=== PATIENT | male | born 1980 | race Caucasian/White ===

== ENCOUNTER 2019-10-06 01:46 | Emergency (ER) | payer SELFPAY ==
--- NOTE | 2019-10-06 01:52 | ED_ITS ---
HPI - General Adult General: Chief complaint: Allergic Reaction Stated complaint: possible allergic reaction Time Seen by Provider: 10/06/19 01:51 History of Present Illness: HPI narrative: [place] is a nice 38-year-old male who comes in complaining of diffuse hives. He states he developed these about midnight tonight and they have progressed to cover most of his arms and legs and torso. He denies any throat tightening, shortness of breath, diarrhea or ge neralized weakness. The patient cannot think of a allergen that may have caused this. He cannot relate any new medications, new soaps, perfumes or anything else that may precipitate this. Associated symptoms: Reports rash (Diffuse hives); Deny chest pain, confusion, diaphoresis, dyspnea, headache(s), malaise, nausea, palpitations, syncope or vomiting Review of Systems General: Reports: other (negative unless marked) Const: Denies: fever, chills, body aches, fatigue, malaise or diaphoresis Eyes: Denies: change in vision or blurry vision ENMT: Denies: throat pain, painful swallowing, hoarseness, ear pain, ear discharge, Change in hearing or nasal discharge Card: Denies: chest pain, palpitations, irregular heart rhythm, syncope, pre- syncope, shortness of breath on exertion or shortness of breath when lying down Resp: Denies: shortness of breath, productive cough, non-productive cough, wheezing, coughing up blood or chest congestion GI: Denies: abdominal pain, nausea, vomiting, vomiting blood, coffee grounds in vomit, diarrhea, constipation, cramping, blood in stool or black tarry stool : Denies: flank pain, difficulty urinating, painful urination, urinary frequency, urinary urgency, decreased urine ouput, urinary incontinence or blood in urine Musc: Denies: neck pain, back pain, extremity pain, extremity swelling, joint pain, joint swelling, joint warmth or joint stiffness Skin/Breast: Reports: rash (Diffuse hives); Denies: skin tenderness or yellow skin Neuro: Denies: headache, numbness in extremities, weakness in extremities, changes in sensation, lack of coordination, difficulty walking, dizziness, vertigo or confusion Endo: Denies: excessive thirst, tired all the time, cold intolerance, excessive sweating, flushing or hot flashes Bob/Lymph: Denies: easy bruising, easy bleeding, petechiae or enlarged lymph nodes All/Imm: Denies: hives, throat swelling, tongue swelling, facial swelling or acute wheezing PFSH ED PFSH: Medical History Peptic ulcer disease Surgical History No history of previous surgery Social History Smoking and tobacco status: former smoker Physical Exam Const: COMMON NORMALS: no apparent distress, oriented x3, no limitations, healthy appearing and well nourished EXAM LIMITATIONS: no altered mental status GENERAL APPEARANCE: cooperative, well kempt and well developed ORIENTATION/CONSCIOUSNESS: Yes awake HENMT: COMMON NORMALS: normocephalic, head/scalp atraumatic, hearing grossly normal bilaterally, external ears normal, EAC's normal, external nose normal and moist oral mucous membranes HEAD & SCALP: normal to inspection, normocephalic and atraumatic FACE & SINUS: normal facial exam and face symmetric NOSE: external nose normal and nares normal EXTERNAL EAR: Yes external ears normal EXTERNAL AUDITORY CANAL: EAC's normal MOUTH: oral and palatal mucosa normal and tongue normal Eye: COMMON NORMALS: PERRL, EOMs intact bilaterally, conjunctivae normal and no scleral icterus GENERAL EYE: normal appearance of both eyes and normal light reflex CONJUNCTIVA: Yes conjunctivae normal SCLERA: sclerae normal CORNEA: Yes corneas normal PUPIL: Yes PERRL DIRECT OPHTHALMOSCOPY: Yes normal light reflex Neck/C-Spine: COMMON NORMALS: full ROM, no lymphadenopathy, supple, no meningeal signs and no JVD GENERAL: Yes normal visual inspection and Yes trachea midline CERVICAL SPINE: Yes cervical ROM normal Chest: COMMONS NORMALS: inspection of chest normal and palpation of chest normal Resp: COMMON NORMALS: normal respiratory effort, no retractions, no use of accessory muscles and clear to auscultation bilaterally EFFORT & INSPECTION: Yes able to speak in complete sentences AUSCULTATION: clear to auscultation bilaterally Cardio: COMMON NORMALS: no JVD, regular rate, regular rhythm, S1 normal heart sound, S2 normal heart sound, no gallops, no clicks, no murmurs and no rub JUGULAR VENOUS DISTENTION: no JVD RATE: regular rate RHYTHM: regular rhythm HEART SOUNDS: S1 normal and S2 normal GI: COMMON NORMALS: soft to palpation, non-tender, no hepatosplenomegaly and no masses INSPECTION: Yes normal to inspection PALPATION: Yes soft and Yes no hepatosplenomegaly : COMMON NORMALS: Yes no CVA tenderness BLADDER/KIDNEY EXAM: Yes no CVA tenderness Back/Pelvis: COMMON NORMALS: no CVA tenderness, thoracic and lumbar spine normal to inspection, no thoracic nor lumbar tenderness and thoraco-lumbar ROM normal Extremity: COMMON NORMALS: normal to inspection, full ROM, normal capillary refill, no joint enlargement, no clubbing, cyanosis or edema and no calf tenderness Neuro: COMMON NORMALS: oriented x3, CN's II-XII intact bilaterally, moves all extremities, no focal motor deficits and no sensory deficits noted MENINGEAL SIGNS: Yes no meningeal signs Psych: COMMON NORMALS: mental status grossly normal, thought process normal, cooperative, affect normal, speech normal and activity/motor behavior normal APPEARANCE: Yes well kempt SPEECH: Yes normal speech THOUGHT PROCESS: normal thought process Skin: COMMON NORMALS: skin turgor normal, no jaundice, no petechiae and no mottling NARRATIVE SKIN EXAM: Diffuse Uticaria GENERAL SKIN EXAM: turgor normal Course Vital Signs: Vital signs: Vital Signs Temperature 96.6 F L 10/06/19 01:55 Pulse Rate 80 10/06/19 01:55 Respiratory Rate 18 10/06/19 01:55 Blood Pressure 117/87 10/06/19 01:55 Pulse Oximetry 97 10/06/19 01:55 MDM - General Adult MDM Narrative: Medical decision making narrative: [place] is a 38-year-old male who comes in with diffuse hives. After thorough review we cannot establish a possible new allergen. He agrees to follow-up with Dr. Branch for allergy testing. He will take the Benadryl, prednisone and Pepcid as I have prescribed. He did take a small amount of Benadryl before he came in. He agrees to return should his symptoms change or worsen in any way. Discharge Plan Discharge Patient Disposition: Home, Self-Care Clinical Impression: Allergic reaction Qualifiers: Encounter type: initial encounter Qualified Code(s): T78.40XA - Allergy, unspecified, initial encounter Condition: Stable Prescriptions: New prednisone 10 mg tablets,dose pack See Rx Instructions .ROUTE .COMPLEX Qty: 21 RF: 0 Pepcid 40 mg tablet 40 mg PO BID Qty: 10 RF: 0 Discharge Orders: Discharge Order (Routine); Ordered 10/06/19 Ordered By: Nunu Guzman Referrals: Luis Obrien MD [Physician] - 1-3 days (Follow-up with Dr. Obrien for allergy testing.) Discharge Diet: Advance as tolerated Discharge Activity: Increase activity as tolerated Patient Instructions: Allergic Reaction, Urticaria (ED), Food Allergy (ED), Anaphylaxis (ED), Antibiotic Medication Allergy (ED) Activity Restrictions/Additional Instructions: Please return to the ER immediately for any of the signs or symptoms listed on your discharge instruction sheets, worsening/changing of your symptoms, you are not getting better as quickly as expected, or for ANY other cause or concerns. Return to the ER for difficulty breathing, diarrhea, tightening in your throat, worsening of your rash, or for any other cause for concern. Take [id number] Benadryl 25 to 50 mg every 6 hours for the next 3 days for your hives. 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
[2019-10-06 01:55] VITALS: BP 117/87; PULSE 80; RESP 18; TEMP 35.9; O2SAT 97; BMI 33.3
[2019-10-06] MEDS: diphenhydrAMINE 25 mg Capsule PO (02:00)
[2019-10-06] MEDS: predniSONE 20 mg Tablet 60 MG PO (02:00)
[2019-10-06] MEDS: famotidine 20 mg Tablet 40 MG PO (02:00)
[2019-10-06 02:05] VITALS: BP 117/87; PULSE 80; RESP 18; TEMP 35.9; O2SAT 97
== END 2019-10-06 02:08 | disposition home or self-care (01) ==
PROVIDERS: Emergency Provider Emergency Medicine
DX: T78.40XA Allergy, unspecified, initial encounter (principal); X58.XXXA Exposure to other specified factors, initial encounter; Z87.891 Personal history of nicotine dependence
CPT/HCPCS: 12345; 99281; 99283; J7512